=== PATIENT | male | born 1955 | race Caucasian/White ===

== ENCOUNTER 2021-01-06 09:47 | Emergency (ER) | payer OTHER ==
[~2021-01-06] VITALS: Ht 172.7 cm; Wt 76.0 kg
[2021-01-06 10:39] LABS: HEMATOCRIT. 49.1 % (42.0-52.0); HEMOGLOBIN. 16.7 g/dL (14.0-18.0); MEAN CORPUSCULAR HEMOGLOBIN 29.4 pg (28.0-32.0); MEAN CORPUSCULAR VOLUME 86.3 fL (80.0-94.0); PLATELET 288 x1000/uL (130-400); RED BLOOD CELL COUNT 5.69 mill/uL (4.7-6.1); RED CELL DISTRIBUTION WIDTH 14.5 % (11.6-14.6)
[2021-01-06 10:46] LABS: CHLORIDE 108 mEq/L (98-107)
[2021-01-06 11:05] VITALS: BP 132/75
[2021-01-06 11:05] LABS: CLARITY URINE CLEAR (CLEAR); COLOR URINE YELLOW (YELLOW); KETONES URINE NEGATIVE (NEGATIVE); LEUKOCYTE ESTERASE URINE NEGATIVE (NEGATIVE); NITRITE URINE NEGATIVE (NEGATIVE); OCCULT BLOOD URINE 3+ (NEGATIVE); PROTEIN URINE TRACE (NEGATIVE); SPECIFIC GRAVITY URINE 1.008 (1.005-1.030); UROBILINOGEN URINE 0.2 E.U./dL (0.2-1.0)
[2021-01-06 11:16] LABS: PLATELET ESTIMATE NORMAL
== END 2021-01-06 11:58 | disposition home or self-care (01) ==
LOC: ER 09:47
DX: R33.9 Retention of urine, unspecified (principal); R11.0 Nausea
CPT/HCPCS: 36415; 80053; 81003; 85025; 93005; 99284